=== PATIENT | male | born 1970 | race Caucasian/White ===

== ENCOUNTER 2022-04-28 09:27 | Emergency (ER) | payer BC ==
[2022-04-28] MEDS ORDERED: Iopamidol 300 61% 100 ML VIAL FS ONE (10:47)
[2022-04-28] MEDS ORDERED: Ketorolac Tromethamine 30 MG/ML VIAL ONE (10:51)
[2022-04-28] MEDS ORDERED: Ondansetron PF 4 MG/2 ML Vial ONE (10:52)
[2022-04-28 11:05] LABS: #Eosinphils 0.1 10x3/uL (0.0-0.5); #Monocytes 0.5 10x3/uL (0.0-1.1); #Neutrophils 4.8 10x3/uL (1.5-8.4); %Basophils 0.5 % (0.0-2.0); %Eosinophils 1.8 % (0.0-6.0); %Lymphocytes 28.9 % (18.0-47.0); %Monocytes 6.7 % (0.0-10.0); %Neutrophils 61.8 % (40.0-75.0); Hemoglobin 16.6 g/dL (13.5-17.5); Mean Corpuscular HGB CONC 33.4 g/dL (32.0-36.0); Mean Corpuscular Hemoglobin 29.1 pg (27.0-33.0); Mean Corpuscular Volume 87.2 fl (81.2-95.1); Mean Platelet Volume 10.4 fl (7.4-10.4); Platelet Count 189 10x3/uL (150-450); RBC Distribution Width 12.4 % (11.5-14.5); White Blood Cell (WBC) Count 7.8 10x3/uL (3.5-10.5)
[2022-04-28 11:19] LABS: ALT (SGPT) 64 U/L (8-55); AST (SGOT) 32 U/L (5-34); Albumin 4.7 g/dL (3.5-5.0); Alkaline Phosphatase 65 U/L (40-110); Anion Gap 15 mmol/L (10-20); BUN (Urea Nitrogen) 15 mg/dL (8.9-20.6); Bilirubin, Total 0.4 mg/dL (0.2-1.2); Calc. Creatinine Clearance 0 mL/min (70-130); Calcium 9.5 mg/dL (7.8-10.44); Carbon Dioxide 25 mmol/L (22-29); Chloride 104 mmol/L (98-107); Estimated GFR 100; Globulin 2.6 g/dL (2.4-3.5); Glucose 102 mg/dL (70-105); Lipase 19 U/L (8-78); Potassium 4.2 mmol/L (3.5-5.1); Protein, Total 7.3 g/dL (6.0-8.3); Sodium 140 mmol/L (136-145)
[2022-04-28 12:55] LABS: Bilirubin Neg (Negative); Blood, Urine Negative (Negative); Clarity Clear (Clear); Glucose, Urine (Dipstick) Normal (Negative); Ketone, Urine Negative (Negative); Leukocyte Negative (Negative); Nitrite Negative (Negative); Protein, Urine (Dipstick) Negative (Neg-Trace); Urobilinogen Normal mg/dL (Less than 2)
== END 2022-04-28 13:45 | disposition home or self-care (01) ==
LOC: CSHERS 09:27
DX: R10.30 Lower abdominal pain, unspecified (principal)
CPT/HCPCS: 74177; 80053; 81003; 83690; 85025; J1885; J2405; Q9967

== ENCOUNTER 2022-12-03 08:48 | Emergency (ER) | payer BC ==
[2022-12-03 10:20] LABS: #Eosinphils 0.2 10x3/uL (0.0-0.5); #Monocytes 0.6 10x3/uL (0.0-1.1); #Neutrophils 4.5 10x3/uL (1.5-8.4); %Basophils 0.3 % (0.0-2.0); %Eosinophils 2.2 % (0.0-6.0); %Lymphocytes 28.5 % (18.0-47.0); %Monocytes 7.8 % (0.0-10.0); %Neutrophils 60.9 % (40.0-75.0); Hematocrit 46.3 % (38.8-50.0); Hemoglobin 15.7 g/dL (13.5-17.5); Mean Corpuscular HGB CONC 33.9 g/dL (32.0-36.0); Mean Corpuscular Hemoglobin 29.3 pg (27.0-33.0); Mean Corpuscular Volume 86.5 fl (81.2-95.1); Mean Platelet Volume 10.3 fl (7.4-10.4); Platelet Count 217 10x3/uL (150-450); RBC Distribution Width 12.6 % (11.5-14.5); Red Blood Cell (RBC) Count 5.35 10x6/uL (4.32-5.72); White Blood Cell (WBC) Count 7.3 10x3/uL (3.5-10.5)
[2022-12-03 10:43] LABS: ALT (SGPT) 94 U/L (8-55); AST (SGOT) 41 U/L (5-34); Albumin 4.4 g/dL (3.5-5.0); Alkaline Phosphatase 60 U/L (40-110); Anion Gap 15 mmol/L (10-20); BUN (Urea Nitrogen) 14 mg/dL (8.9-20.6); Bilirubin, Total 0.8 mg/dL (0.2-1.2); Calc. Creatinine Clearance 0 mL/min (70-130); Calcium 9.2 mg/dL (7.8-10.44); Carbon Dioxide 24 mmol/L (22-29); Chloride 102 mmol/L (98-107); Estimated GFR 105; Globulin 2.3 g/dL (2.4-3.5); Glucose 89 mg/dL (70-105); Magnesium 2.1 mg/dL (1.6-2.6); Potassium 4.1 mmol/L (3.5-5.1); Protein, Total 6.7 g/dL (6.0-8.3); Sodium 137 mmol/L (136-145)
[2022-12-03 10:49] LABS: Troponin I Less than 0.010 ng/mL (< 0.028)
[2022-12-03 12:35] LABS: Troponin I Less than 0.010 ng/mL (< 0.028)
== END 2022-12-03 13:05 | disposition home or self-care (01) ==
LOC: CSHERS 08:48
DX: R07.9 Chest pain, unspecified (principal); R42 Dizziness and giddiness
CPT/HCPCS: 36415; 80053; 83735; 84484; 85025; 93005; 93010; 99284

== ENCOUNTER 2024-12-15 10:42 | Emergency (ER) | payer BC ==
[2024-12-15 11:52] LABS: #Basophils 0.03 10x3/uL (0.0-0.2); #Eosinophils 0.24 10x3/uL (0.0-0.5); #Monocytes 0.55 10x3/uL (0.0-1.1); #Neutrophils 5.08 10x3/uL (1.5-8.4); %Basophils 0.4 % (0.0-2.0); %Eosinophils 2.9 % (0.0-6.0); %Lymphocytes 28.6 % (18.0-47.0); %Monocytes 6.6 % (0.0-10.0); %Neutrophils 61.1 % (40.0-75.0); Hematocrit 49.7 % (38.8-50.0); Hemoglobin 16.7 g/dL (13.5-17.5); Mean Corpuscular Hemoglobin 28.6 pg (27.0-33.0); Mean Corpuscular Volume 85.2 fL (81.2-95.1); Platelet Count 215 10x3/uL (150-450); Red Blood Cell (RBC) Count 5.83 10x6/uL (4.32-5.72); White Blood Cell (WBC) Count 8.31 10x3/uL (3.5-10.5)
[2024-12-15] MEDS ORDERED: Ketorolac Tromethamine 30 MG (1 mL) VIAL ONE (11:54)
[2024-12-15] MEDS ORDERED: Metoclopramide HCl 10 MG (2 mL) VIAL ONE (11:54)
[2024-12-15 12:19] LABS: ALT (SGPT) 74 U/L (Less than 45); AST (SGOT) 44 U/L (11-34); Albumin 4.9 g/dL (3.1-4.5); Alkaline Phosphatase 75 U/L (40-110); Anion Gap 15 mmol/L (10-20); BUN (Urea Nitrogen) 16 mg/dL (8.4-25.7); Bilirubin, Total 0.8 mg/dL (0.3-1.2); Calc. Creatinine Clearance 0 mL/min (70-130); Calcium 9.6 mg/dL (7.8-10.44); Carbon Dioxide 26 mmol/L (22-29); Chloride 101 mmol/L (98-107); Globulin 2.8 g/dL (2.4-3.5); Glucose 105 mg/dL (70-105); Potassium 4.6 mmol/L (3.5-5.1); Sodium 137 mmol/L (136-145)
[2024-12-15 12:54] LABS: Troponin I Less than 0.010 ng/mL (< 0.028)
== END 2024-12-15 13:16 | disposition home or self-care (01) ==
LOC: CSHERS 10:42
DX: M94.0 Chondrocostal junction syndrome [Tietze] (principal)
CPT/HCPCS: 70450; 72125; 80053; 84484; 85025; 85379; 93005; J1885; J2765